=== PATIENT | male | born 1970 | race Caucasian/White ===

== ENCOUNTER 2021-07-30 12:59 | Outpatient (CLI) | payer MEDICARE ==
[2021-07-30 14:08] LABS: Hemoglobin 13.7 g/dL (13.5-17.5); Mean Corpuscular HGB CONC 31.9 g/dL (32.0-36.0); Mean Corpuscular Hemoglobin 28.1 pg (27.0-33.0); Mean Corpuscular Volume 88.1 fl (81.2-95.1); Mean Platelet Volume 10.1 fl (7.4-10.4); Platelet Count 306 10x3/uL (150-450); RBC Distribution Width 14.5 % (11.5-14.5); Red Blood Cell (RBC) Count 4.87 10x6/uL (4.32-5.72)
[2021-07-30 14:22] LABS: Anion Gap 14 mmol/L (10-20); BUN (Urea Nitrogen) 13 mg/dL (8.9-20.6); Calc. Creatinine Clearance 0 mL/min (70-130); Calcium 9.5 mg/dL (7.8-10.44); Carbon Dioxide 25 mmol/L (22-29); Chloride 103 mmol/L (98-107); Glucose 133 mg/dL (70-105); Potassium 3.7 mmol/L (3.5-5.1); Sodium 138 mmol/L (136-145)
[2021-07-31 00:54] LABS: SARS-CoV-2 PCR by NAA Not Detected (NotDetected)
== END 2021-07-30 13:00 | disposition home or self-care (01) ==
LOC: LABBT 12:59
PROVIDERS: ATTEND Neurological Surgery
DX: Z01.812 Encounter for preprocedural laboratory examination (principal); M48.062 Spinal stenosis, lumbar region with neurogenic claudication; Z20.822 Contact with and (suspected) exposure to COVID-19
CPT/HCPCS: 80048; 85027; U0003; U0005

== ENCOUNTER 2021-08-04 05:42 | Observation (INO) | payer MEDICARE ==
[2021-08-04] MEDS ORDERED: ceFAZolin 2 GM/DEX 5% 100 ML BAG ONE (06:09)
[2021-08-04] MEDS ORDERED: Dexmedetomidine 200 MCG/2 ML VIAL ONE (06:36)
[2021-08-04] MEDS ORDERED: Fentanyl 100 MCG/2 ML VIAL ONE ×3 (06:36→10:56)
[2021-08-04] MEDS ORDERED: Ondansetron PF 4 MG/2 ML Vial ONE (07:37)
[2021-08-04] MEDS ORDERED: PROPOFOL 200 MG/20 ML VIAL ONE (07:37)
[2021-08-04] MEDS ORDERED: ePHEDrine 50 MG/ML VIAL ONE (07:37)
[2021-08-04] MEDS ORDERED: Rocuronium Bromide 10 MG/ML (10ML VIAL) ONE (07:37)
[2021-08-04] MEDS ORDERED: PHENYLEPHRINE-NS 100 MCG/ML 10 ML SYRINGE ONE (07:37)
[2021-08-04] MEDS ORDERED: Lidocaine 1% PF 5 ML VIAL ONE (07:37)
[2021-08-04] MEDS ORDERED: Dexamethasone 20 MG/5 ML VIAL ONE (07:37)
[2021-08-04] MEDS ORDERED: Phenylephrine 10 MG/ML VIAL ONE (08:06)
[2021-08-04] MEDS ORDERED: SUGAMMADEX SODIUM 200 MG/2 ML VIAL ONE (09:04)
[2021-08-04] MEDS ORDERED: Promethazine HCl 25 MG/ML VIAL IM PRN (09:59)
[2021-08-04] MEDS ORDERED: HYDROmorphone 2 MG/ML VIAL SLOW IVP PRN (09:59)
[2021-08-04] MEDS ORDERED: Promethazine HCl 25 MG/ML VIAL IVPB PRN (09:59)
[2021-08-04] MEDS ORDERED: Ondansetron HCl/PF 4 MG/2 ML Vial IVP PRN (09:59)
[2021-08-04] MEDS ORDERED: Ondansetron PF 4 MG/2 ML Vial IM PRN (12:14)
[2021-08-04] MEDS ORDERED: tiZANidine HCl 4 MG TAB PO PRN (12:15)
[2021-08-04] MEDS ORDERED: traMADol HCl 50 MG TAB PO PRN ×2 (12:15)
[2021-08-04] MEDS ORDERED: Acetaminophen/Codeine 30-300mg Tablet PO PRN (12:15)
[2021-08-04] MEDS ORDERED: Morphine 4 MG/ML VIAL SLOW IVP PRN (12:15)
[2021-08-04] MEDS ORDERED: Milk Of Magnesia 30 ML UDCUP PO PRN (12:15)
[2021-08-04] MEDS ORDERED: Morphine 2 MG/ML VIAL SLOW IVP PRN (12:15)
[2021-08-04] MEDS ORDERED: Mag-Al 1200 mg/1200 mg/30 ML UDCUP PO PRN (12:15)
[2021-08-04] MEDS ORDERED: diphenhydrAMINE 50 MG/ML VIAL IVP PRN (12:15)
[2021-08-04] MEDS ORDERED: diphenhydrAMINE 25 MG CAP PO PRN (12:15)
[2021-08-04] MEDS ORDERED: Benztropine 1 MG TAB PO PRN (12:22)
[2021-08-04] MEDS: Acetaminophen/Codeine 30-300mg Tablet PO PRN ×2 (12:34→19:33)
[2021-08-04] MEDS ORDERED: Insulin Regular 300 UNITS/3 ML VIAL SC PRN ×2 (12:46)
[2021-08-04] MEDS ORDERED: Dextrose 50% Abboject 50 ML SYRINGE SLOW IVP PRN (12:46)
[2021-08-04] MEDS ORDERED: Dextrose 5% in Water 1,000 ML IV PRN (12:46)
[2021-08-04] MEDS ORDERED: hydrALAZINE 20 MG/ML VIAL SLOW IVP PRN (12:47)
[2021-08-04] MEDS ORDERED: Calcium Carbonate 500 MG ChewTAB PO PRN (12:49)
[2021-08-04] MEDS ORDERED: Electrolyte Replacement Protocol 1 EACH FS SCH (13:00)
[2021-08-04] MEDS: ceFAZolin Sodium/D5W 2 GM in Premix Bag 1 BAG IVPB SCH ×2 (15:08→21:23)
[2021-08-04] MEDS: Sodium Chloride 0.9% 1,000 ML IV SCH (15:09)
[2021-08-04] MEDS ORDERED: metFORMIN 500 MG TAB PO SCH (17:00)
[2021-08-04] MEDS ORDERED: DULoxetine 30 MG CAP PO SCH (21:00)
[2021-08-04] MEDS ORDERED: Atorvastatin Calcium 40 MG TAB PO SCH (21:00)
[2021-08-04] MEDS ORDERED: Aripiprazole 15 MG TAB PO SCH (21:00)
[2021-08-04] MEDS ORDERED: traZODone HCl 150 MG TAB PO SCH (21:00)
[2021-08-04] MEDS: Meloxicam 7.5 MG TAB PO SCH (21:21)
[2021-08-05] MEDS: Sodium Chloride 0.9% 1,000 ML IV SCH (01:43)
[2021-08-05] MEDS: ceFAZolin Sodium/D5W 2 GM in Premix Bag 1 BAG IVPB SCH ×2 (05:30→14:28)
[2021-08-05] MEDS ORDERED: Tamsulosin HCl 0.4 MG CAP PO SCH (06:00)
[2021-08-05 06:23] LABS: #Eosinphils 0.1 thou/uL (0.0-0.7); #Lymphocytes 1.8 thou/uL (1.20-3.40); #Monocytes 1.3 thou/uL (0.11-0.59); #Neutrophils 13.6 thou/uL (1.40-6.50); %Basophils 0.2 % (0.0-1.0); %Eosinophils 0.5 % (0.0-10.0); %Lymphocytes 10.6 % (21.0-51.0); %Monocytes 7.9 % (0.0-10.0); %Neutrophils 80.8 % (42.0-75.0); Hemoglobin 13.4 g/dL (14.0-18.0); Mean Corpuscular HGB CONC 33.5 g/dL (32.0-36.0); Mean Corpuscular Hemoglobin 29.7 pg (27.0-31.0); Mean Corpuscular Volume 88.6 fL (78.0-98.0); Mean Platelet Volume 7.7 fL (7.4-10.4); Platelet Count 292 thou/uL (130-400); RBC Distribution Width 13.8 % (11.5-14.5); Red Blood Cell (RBC) Count 4.51 mill/uL (4.70-6.10); White Blood Cell (WBC) Count 16.8 thou/uL (4.8-10.8)
[2021-08-05 06:46] LABS: Phosphorus 3.5 mg/dL (2.3-4.7)
[2021-08-05 06:48] LABS: Anion Gap 12 mmol/L (10-20); BUN (Urea Nitrogen) 17 mg/dL (8.9-20.6); Calc. Creatinine Clearance 217 mL/min (70-130); Calcium 8.7 mg/dL (7.8-10.44); Carbon Dioxide 26 mmol/L (22-29); Chloride 104 mmol/L (98-107); Glucose 148 mg/dL (70-105); Magnesium 2.1 mg/dL (1.6-2.6); Potassium 4.4 mmol/L (3.5-5.1); Sodium 138 mmol/L (136-145)
[2021-08-05] MEDS: Acetaminophen/Codeine 30-300mg Tablet PO PRN ×2 (07:12→14:06)
[2021-08-05] MEDS ORDERED: Hydrochlorothiazide 25 MG TAB PO SCH ×2 (09:00)
[2021-08-05] MEDS ORDERED: DULoxetine 60 MG CAP PO SCH (09:00)
[2021-08-05] MEDS ORDERED: Amlodipine 10 MG TAB PO SCH ×2 (09:00)
[2021-08-05] MEDS ORDERED: FLU VACC QS2021-22(6MOS UP)/PF 60 MCG/0.5 ML SYRINGE IM ONE (09:00)
[2021-08-05] MEDS: Meloxicam 7.5 MG TAB PO SCH (09:37)
[2021-08-05 10:16] VITALS: BMI 54.1
[2021-08-05 12:09] VITALS: BP 153/80; TEMP 97.9
== END 2021-08-05 16:22 | disposition home or self-care (01) ==
LOC: SDC 05:42 → SURG B 11:38 → INTOOBSV 11:38
PROVIDERS: ADMIT Neurological Surgery; ATTEND Neurological Surgery
PROC: 01NB0ZZ Release Lumbar Nerve, Open Approach (ICD-10-PCS; principal; 2021-08-04)
DX: M48.062 Spinal stenosis, lumbar region with neurogenic claudication (principal); E78.5 Hyperlipidemia, unspecified; I25.10 Atherosclerotic heart disease of native coronary artery without angina pectoris; G89.4 Chronic pain syndrome; F17.210 Nicotine dependence, cigarettes, uncomplicated; M54.50 Low back pain, unspecified; G47.33 Obstructive sleep apnea (adult) (pediatric); I12.9 Hypertensive chronic kidney disease with stage 1 through stage 4 chronic kidney disease, or unspecified chronic kidney disease; E11.22 Type 2 diabetes mellitus with diabetic chronic kidney disease; N18.2 Chronic kidney disease, stage 2 (mild); F20.9 Schizophrenia, unspecified; E66.01 Morbid (severe) obesity due to excess calories; Z68.43 Body mass index [BMI] 50.0-59.9, adult; Z86.73 Personal history of transient ischemic attack (TIA), and cerebral infarction without residual deficits; Z79.1 Long term (current) use of non-steroidal anti-inflammatories (NSAID); Z79.84 Long term (current) use of oral hypoglycemic drugs; Z79.899 Other long term (current) drug therapy; Z91.018 Allergy to other foods; Z91.040 Latex allergy status
CPT/HCPCS: 36416; 76000; 80048; 83735; 84100; 85025; 94760; 96365; G0378; J1100; J1815; J2370; J2405; J2704; J3010; J3370; J3490; J7050